=== PATIENT | female | born 1960 | race Asian ===

== ENCOUNTER → 2020-08-10 | Outpatient (CLI) | payer BC, MEDICAID | END | disposition home or self-care (01) | LOC: CFH 12:04 | PROVIDERS: ATTEND Family Medicine | DX: Z12.31 Encounter for screening mammogram for malignant neoplasm of breast (principal); Z01.419 Encounter for gynecological examination (general) (routine) without abnormal findings; Z13.6 Encounter for screening for cardiovascular disorders; E78.00 Pure hypercholesterolemia, unspecified | CPT/HCPCS: 75571; 77063; 77067 ==